=== PATIENT | female | born 1940 | race Caucasian/White ===

== ENCOUNTER 2017-11-22 23:09 | Emergency (ER) | payer OTHER ==
[~2017-11-22] VITALS: Ht 154.9 cm; Wt 63.0 kg
[~2017-11-22 23:09] MED LIST: ACETAMINOPHEN-1 EAC1 PO; AMLODIPINE BESY10 MG PO; ATIVAN1 MG PO; BEE POLLEN550 MG PO; BONIVA150 MG PO; CEPHALEXIN500 MG PO; CRANBERRY 6,001 EACH PO; DOCUSATE SODIU100 MG PO; FISH OIL 1,2001 EAC4 PO; FLONASE16 G1 BOTH NARES; FOLIC ACID0.8 MG PO; GRAPE SEED EXTR50 MG PO; LIDOCAINE700 MG TD; LITE COAT ASPI325 M1 PO; LOSARTAN POTAS100 MG PO; LOVENOX40 MG/0.4 SC; METAXALONE800 MG PO; MILK OF MAGNESI10 ML PO; OMEPRAZOLE40 M1 PO; ONE DAILY TABL1 EAC1 PO; OPTIFLEX-C400 MG PO; PERCOCET 5/31 TABLET PO; PLAVIX75 MG PO; POLYETHYLENE GL17 GM PO; PRILOSEC20 MG PO; RANITIDINE HCL300 M1 PO; SELENIUM100 MICROG PO; SENOKOT S,PE1 TABLET PO; SF 5000 PLUS51 GM DT; SIMVASTATIN40 MG PO; TYLENOL REGULA325 MG PO; VITAMIN B-6100 MG PO; VITAMIN D32000 UNI1 PO; WELLBUTRIN XL300 MG PO; ZOFRAN4 MG PO
[2017-11-22 23:45] LABS: ADD MIUA? YES; BILIRUBIN NEGATIVE; BLOOD NEGATIVE; COLOR STRAW ((YELLOW)); GLUCOSE (STRIP) NEGATIVE; KETONES 5; LEUKOCYTES TRACE; NITRITE NEGATIVE; PROTEIN (STRIP) NEGATIVE; UROBILINOGEN 0.2 MG/DL (0.2-1.0)
[2017-11-22 23:49] LABS: BACTERIA NONE SEEN /HPF; EPITHELIAL CELLS RARE /HPF; HYALINE CASTS 0-5 /LPF; MUCUS NONE SEEN /LPF; RED BLOOD CELLS 0-5 /HPF (0-5); UCUL ADDED? NO; WHITE BLOOD CELLS 0-5 /HPF (0-5)
[2017-11-23] MEDS ORDERED: PERCOCET 5/31 TABLET PO (02:12)
[2017-11-23 02:20] VITALS: BP 176/90
== END 2017-11-23 02:46 | disposition home or self-care (01) ==
LOC: EME → EDBD 23:09 → EME 23:09
PROVIDERS: Emergency Medicine
DX: M51.36 Other intervertebral disc degeneration, lumbar region (principal); M62.830 Muscle spasm of back; G89.29 Other chronic pain; I10 Essential (primary) hypertension; K21.9 Gastro-esophageal reflux disease without esophagitis; F17.200 Nicotine dependence, unspecified, uncomplicated; Z86.718 Personal history of other venous thrombosis and embolism; Z87.440 Personal history of urinary (tract) infections; Z96.642 Presence of left artificial hip joint; Z88.5 Allergy status to narcotic agent
CPT/HCPCS: 74000; 81003; 93005; 99281; 99285; J2060

== ENCOUNTER 2017-12-14 07:58 | Day surgery (SDC) | payer OTHER ==
[~2017-12-14] VITALS: Ht 154.9 cm; Wt 60.3 kg
[~2017-12-14 07:58] MED LIST changes: +CALCIUM 500 MG1 EACH PO; +FISH OIL 1,0001 EAC7 PO; +LIDODERM 5% P1 PATCH TD; +LO-DOSE ASPIRIN81 M1 PO; +LORTAB 5-325 M1 EACH PO; +MIRALAX17 GM PO; -ONE DAILY TABL1 EAC1 PO; +TYLENOL EXTRA500 MG PO; -TYLENOL REGULA325 MG PO; +WOMEN'S DAILY1 EACH PO; +ZANTAC300 MG PO
[2017-12-14] MEDS ORDERED: PLAVIX75 MG PO (08:25)
== END 2017-12-14 09:45 | disposition home or self-care (01) ==
LOC: PAIN 07:58 → SDC 08:30 → PAIN 09:45
DX: M47.814 Spondylosis without myelopathy or radiculopathy, thoracic region (principal); Z79.891 Long term (current) use of opiate analgesic; Z87.891 Personal history of nicotine dependence; I70.90 Unspecified atherosclerosis; Z95.820 Peripheral vascular angioplasty status with implants and grafts; M85.80 Other specified disorders of bone density and structure, unspecified site; I10 Essential (primary) hypertension; E78.5 Hyperlipidemia, unspecified; K21.9 Gastro-esophageal reflux disease without esophagitis; Z79.82 Long term (current) use of aspirin
CPT/HCPCS: J1030; J2250; J3010; S0020

== ENCOUNTER 2017-12-29 14:29 | Day surgery (SDC) | payer OTHER ==
[~2017-12-29] VITALS: Ht 154.9 cm; Wt 58.5 kg
[2017-12-29 15:05] VITALS: BP 186/87
[2017-12-29 20:03] VITALS: BP 126/71
[2017-12-29 23:51] VITALS: BP 120/60
[2017-12-30 04:05] VITALS: BP 119/59
[2017-12-30 09:27] VITALS: BP 145/77
[2017-12-30] MEDS ORDERED: TIZANIDINE HCL4 MG PO (11:14)
[2017-12-30] MEDS ORDERED: NORCO 7.5/321 TABLET PO (11:16)
[2017-12-30 12:09] VITALS: BP 11/53
== END 2017-12-30 14:13 | disposition home or self-care (01) ==
LOC: SDC 14:29 → ENRESERV 17:24 → 2SOUTH 17:31 → 3EAST 17:31 → 2SOUTH 17:31 → ENRESERV 18:27 → 3EAST 19:34
PROC: 0PU43JZ Supplement Thoracic Vertebra with Synthetic Substitute, Percutaneous Approach (ICD-10-PCS; principal; 2017-12-29)
DX: S22.060A Wedge compression fracture of T7-T8 vertebra, initial encounter for closed fracture (principal); S22.080A Wedge compression fracture of T11-T12 vertebra, initial encounter for closed fracture; X50.0XXA Overexertion from strenuous movement or load, initial encounter; Y93.E9 Activity, other interior property and clothing maintenance; Y92.008 Other place in unspecified non-institutional (private) residence as the place of occurrence of the external cause; M40.204 Unspecified kyphosis, thoracic region; I73.9 Peripheral vascular disease, unspecified; I10 Essential (primary) hypertension; E78.5 Hyperlipidemia, unspecified; K21.9 Gastro-esophageal reflux disease without esophagitis; Z79.82 Long term (current) use of aspirin; Z79.02 Long term (current) use of antithrombotics/antiplatelets; F17.210 Nicotine dependence, cigarettes, uncomplicated; M81.0 Age-related osteoporosis without current pathological fracture
CPT/HCPCS: 72070; 76000; 95938; G0378; J0330; J0690; J1100; J1170; J2250; J2270; J2405; J2710; J3010

== ENCOUNTER 2018-05-24 08:41 | Day surgery (SDC) | payer OTHER ==
[~2018-05-24] VITALS: Ht 152.4 cm; Wt 56.2 kg
[~2018-05-24 08:41] MED LIST changes: +NORCO 7.5/321 TABLET PO; +TIZANIDINE HCL4 MG PO
== END 2018-05-24 10:10 | disposition home or self-care (01) ==
LOC: PAIN 08:41 → SDC 09:30 → PAIN 10:10
DX: M47.814 Spondylosis without myelopathy or radiculopathy, thoracic region (principal); M54.6 Pain in thoracic spine; M79.2 Neuralgia and neuritis, unspecified; K21.9 Gastro-esophageal reflux disease without esophagitis; I10 Essential (primary) hypertension; I44.4 Left anterior fascicular block; M79.1 Myalgia; Z88.0 Allergy status to penicillin; Z79.82 Long term (current) use of aspirin; Z79.02 Long term (current) use of antithrombotics/antiplatelets; Z91.013 Allergy to seafood; Z88.5 Allergy status to narcotic agent; F17.200 Nicotine dependence, unspecified, uncomplicated
CPT/HCPCS: J1030; J2250; S0020

== ENCOUNTER 2018-07-25 08:50 | Day surgery (SDC) | payer OTHER ==
[~2018-07-25] VITALS: Ht 154.9 cm; Wt 58.1 kg
[~2018-07-25 08:50] MED LIST changes: +FEOSOL325 MG PO; +MELATONIN10 M1 PO; +METAXALL800 MG PO; +VITAMIN B-121000 MC3 PO
== END 2018-07-25 10:33 | disposition home or self-care (01) ==
LOC: PAIN 08:50 → SDC 09:15 → PAIN 10:33
DX: M47.814 Spondylosis without myelopathy or radiculopathy, thoracic region (principal); S22.000S Wedge compression fracture of unspecified thoracic vertebra, sequela; G89.29 Other chronic pain; Z79.891 Long term (current) use of opiate analgesic; M79.1 Myalgia; F17.200 Nicotine dependence, unspecified, uncomplicated; I10 Essential (primary) hypertension; I25.10 Atherosclerotic heart disease of native coronary artery without angina pectoris; D50.9 Iron deficiency anemia, unspecified; M85.80 Other specified disorders of bone density and structure, unspecified site; E78.5 Hyperlipidemia, unspecified; Z79.02 Long term (current) use of antithrombotics/antiplatelets; Z88.0 Allergy status to penicillin; Z88.5 Allergy status to narcotic agent; Z88.8 Allergy status to other drugs, medicaments and biological substances
CPT/HCPCS: J1030; J2250; J3010; S0020